=== PATIENT | male | born 1975 | race Caucasian/White ===

== ENCOUNTER 2018-09-30 20:49 | Inpatient (IN) ==
[2018-09-30 23:40] LABS: Hemoglobin 14.3 g/dL (12.9-16.9); Lymphocytes % 1.3 %
[2018-09-30 23:42] LABS: Basophils # 0.1 K/mcL (0.0-0.2); Basophils % 0.3 %; Hematocrit 42.7 % (37.5-50.1); Immature Granulocytes % 5.3 % (0-4); Lymphocytes # 0.4 K/mcL (0.6-4.6); Mean Corpuscular HGB Conc 33.5 g/dL (31.6-35.5); Mean Corpuscular Hemoglobin 28.5 pg (28.0-33.3); Mean Corpuscular Volume 85.2 fL (83.0-100.0); Mean Platelet Volume 9.5 fL (9.4-12.4); Monocytes # 0.8 K/mcL (0.0-1.3); Neutrophils # 24.2 K/mcL (1.6-8.9); Platelet Count 140 K/mcL (140-400); Red Blood Count 5.01 M/mcL (4.19-5.50); Red Cell Distribution Width 13.3 % (11.5-14.5); Segmented Neutrophils % 90.1 %
[2018-09-30] MEDS ORDERED: Naloxone 0.4 MG/ML INJ IVP PRN (23:56)
[2018-10-01] LABS: Alanine Aminotransferase 26 Units/L (7-52); Albumin 3.6 g/dL (3.5-5.7); Albumin/Globulin Ratio 1.3 (1.1-2.2); Alkaline Phosphatase 40 Units/L (34-104); Aspartate Amino Transferase 17 Units/L (13-39); BUN/Creatinine Ratio 13 (6-26); Bilirubin,Direct 0.2 mg/dL (0.0-0.2); Bilirubin,Indirect 0.5 mg/dL (0.0-1.2); Bilirubin,Total 0.7 mg/dL (0.3-1.0); Blood Urea Nitrogen 19 mg/dL (6-20); Calcium 8.6 mg/dL (8.6-10.3); Carbon Dioxide 22 mEq/L (23-29); Chloride 101 mEq/L (98-107); Globulin 2.7 g/dL (2.4-3.5); Glucose 92 mg/dL (70-105); Magnesium 1.5 mg/dL (1.6-2.6); Osmolality,Calculated 284 (280-300); Phosphorous 1.3 mg/dL (2.7-4.5); Potassium 3.5 mEq/L (3.5-5.1); Sodium 136 mEq/L (136-145); Total Protein 6.3 g/dL (6.4-8.9); eGFR For Non-African Americans 54 (> 60)
[2018-10-01 00:03] LABS: Platelet Estimate Decreased (Normal)
--- NOTE | 2018-10-01 00:07 | Internal Med History&Physical ---
<Vilma De La O - Last Filed: 10/01/18 02:16> Date of Encounter: 10/01/18 Time of Encounter: 00:07 Internal Medicine - H&P: HPI Admitted From: Hospital to Hospital Transfer Plans for Post Hospital Care: Home History of present illness: Mr. To is a 43 year old male presenting from [facility] emergency department via EMS for left lower extremity infection. He has a past medical history of hypertension, psoriasis which has led to multiple cellulitis infections in the past. Patient states last night he felt feverish and when he woke up his left lower extremity was erythematous and painful. He admits to having intense lower extremity pruritus and scratching at the multiple scabbed encrusting lesions on his lower extremities. He proceeded to take 3 tablets of Tylenol but continued to feel nauseous and diaphoretic as well as experiencing photophobia so presented to an urgent care, was transferred from urgent care to [place] [facility]. At [place] [facility] he was found to have tachycardia, leukocytosis at 24.5 with a left shift, as well as electrolyte abnormalities, hyponatremic at 133, hypokalemic at 3.1, hypophosphatemic at less than 1.0, hypomagnesemia at 1.4, lactic acidosis at 2.7. Peripheral smear was significant for toxic granulation, vacuolation, and dohle bodies. Troponins, BNP, cortisol, LFTs were within normal limits. EKG showed sinus tachycardia with heart rate 104 and right bundle branch block. UA was positive for proteinuria, ketonuria, moderate bacteria and hyaline casts. Chest x-ray was negative for any acute cardiopulmonary abnormality. Blood cultures were drawn and are pending. Patient admits to fever, chills, nausea, diaphoresis, photophobia, and chronic scabbed and crusted lesions over lower ex tremities. He states that his lower extremity pain is circumferential around the calf and extends to ankle distally and about 4-5 inches proximal to knee. Pain is 4 out of 10 and aggravated by walking and alleviated by lying still. He states that his leg is sore and aching. He denies any vomiting, lightheadedness, hearing changes, pharyngitis, sinus congestion, dysphagia, chest pain, pleuritic chest pain, shortness of breath, cough, palpitations, abdominal pain, diarrhea, constipation, hematochezia, melena, hematuria, dysuria, calf pain, joint pain, unintentional weight loss, change in ambulation. He also denies tobacco use, illicit drug use, recent hospitalizations or travel. Past Med Surg Social Fam HX - Past Medical History Medical history: hypertension Psychiatric history: no psych history - Past Surgical History Surgical History: no surgical history - Social History Smoking Status: Never smoker Smokeless Tobacco Status: No Alcohol use: occasionally Drug use: none Internal Medicine - H&P: Meds Aspirin [Ecotrin] 325 mg PO DAILY 09/30/18 [History] RX: Lisinopril-HCTZ 20-12.5 [Prinzide 20-12.5] 1 each PO BID 09/30/18 [History] amLODIPine [Norvasc] 5 mg PO DAILY 09/30/18 [History] Allergy/AdvReac Type Severity Reaction Status Date / Time No Known Allergies Allergy Verified 09/30/18 17:59 All Systems PM: A 10-system review of systems was performed and is negative for pertinent findings except as documented above in the HPI. - Constitutional Constitutional: chills, excessive sweating, fever(s), no anorexia, no weight loss - EENT Eyes: photophobia, no diplopia Ears: no decreased hearing, no tinnitus Nose, mouth and throat: no dysphagia, no nasal congestion, no neck pain, no sinus pressure, no sore throat - Cardiovascular Cardiovascular ROS IM: diaphoresis, no chest pain, no dyspnea, no dyspnea on exertion, no edema, no palpitations, no syncope - Respiratory Respiratory: no cough, no dyspnea, no hemoptysis, no pain on inspiration, no chest congestion - Gastrointestinal Gastrointestinal: nausea, no abdominal pain, no constipation, no diarrhea, no hematochezia, no melena, no vomiting - Genitourinary Genitourinary ROS male: no dysuria, no hematuria - Musculoskeletal Musculoskeletal ROS IM: no arthralgias, no myalgias - Integumentary Integumentary IM: non-healing lesions, pruritus - Neurological Neurological ROS: dizziness, no abnormal gait, no headache(s), no paresthesias, no vertigo - Psychiatric Psychiatric: no anxiety, no depression - Endocrine Endocrine IM: excessive sweating, no cold intolerance, no heat intolerance - Hematologic/Lymphatic Hematologic/Lymphatic: no easy bleeding, no easy bruising - Allergic/Immunologic Allergic/Immunologic: no uticaria - Constitutional Exam: Gen.: Vitals noted. Mild distress. AAOx3, resting comfortably in bed, obese. HEENT: PERRL/EOMI, oropharynx clear, Normocephalic, atraumatic, MMM Neck: Supple. No adenopathy. Trachea midline. No cervical midline tenderness Cardiac: Tachycardic, regular rhythm, no murmur, +S1/S2, No BLE edema, no JVD, radial and dorsal pedis pulses 3+ and symmetrical, capillary refill less than 2 seconds in all extremities. Pulmonary: CTA bilaterally, no wheezes, rales or rhonchi, equal chest expansion, unlabored breathing Abdomen: soft, nontender, BS noted, no guarding, no palpable HSM Back: Nontender throughout. Skin: warm and moist. Right lower extremity shows multiple scabbed and crusted lesions about 1 cm in diameter on anterior tib-fib region, no erythema or signs of excoriation. Left lower extremity shows anterior erythema extending from ankle to knee, multiple scabbed and crusted lesions circumferentially around sindy f, multiple excoriations present, no discharge or drainage from lesions, no fluctuance palpated. Left lower extremity is hot to touch as compared to right lower extremity. MSK: ROM intact, no joint swelling noted, gait no assessed while in bed. Non tender calf or clubbing Neuro: A&Ox3, moves all extremities, no focal deficits, sensation intact, CN2-12 grossly intact Psych: Appropriate mood and behavior, AOx3 Internal Med - H&P Results - Labs CBC & Chem 7: 09/30/18 23:24 09/30/18 23:24 Labs: Short CBC 09/30/18 Range/Units 23:24 WBC 26.8 H (4.3-11.1) K/mcL Hgb 14.3 (12.9-16.9) g/dL Hct 42.7 (37.5-50.1) % Plt Count 140 (140-400) K/mcL Neutrophils # 24.2 H (1.6-8.9) K/mcL BMP 09/30/18 23:24 Sodium 136 Potassium 3.5 Chloride 101 Carbon Dioxide 22 L BUN 19 Creatinine 1.43 H Glucose 92 Calcium 8.6 Liver Function 09/30/18 Range/Units 23:24 Total Bilirubin 0.7 (0.3-1.0) mg/dL Direct Bilirubin 0.2 (0.0-0.2) mg/dL AST 17 (13-39) Units/L ALT 26 (7-52) Units/L Alkaline Phosphatase 40 (34-104) Units/L Albumin 3.6 (3.5-5.7) g/dL - Assessment and Plan (1) Sepsis Current Visit: Yes Status: Acute Assessment and plan: Suspect secondary to left lower extremity cellulitis SIRS criteria on presentation to [place] ED include tachycardia at 101, leukocytosis 24.5 Patient was hypotensive at the ED, blood pressure 73/51 which has improved status post 3 L normal saline Current vitals are temperature 99.5, heart rate 92, respiratory rate 18, 104/64, 91% on 2 L nasal cannula Repeat of CBC shows that leukocytosis increased from 24.5-26.8 Repeated lactic acid shows increase from 2.7- 4.4 Peripheral smear was positive for toxic granulation, vacuolation and dohle bodies Chest x-ray negative for any acute cardiopulmonary abnormality Blood cultures pending, if patient remains febrile will repeat blood cultures Plan Hourly vitals and cardiac monitoring Fluid bolus of 2 L normal saline, followed by maintenance normal saline at 100 mL per hour Broad-spectrum antibiotic coverage with vancomycin and cefepime CT left lower extremity Venous doppler ultrasound left lower extremity Repeat lactic acid, CBC, BMP, magnesium, phosphorus at 4 AM Replete electrolytes Ondansetron for nausea Acetaminophen for fever Qualifiers: Sepsis type: sepsis due to unspecified organism Qualified Code(s): A41.9 - Sepsis, unspecified organism (2) Cellulitis of leg, left Current Visit: Yes Status: Acute Assessment and plan: Patient presented with left lower extremity cellulitis secondary to excoriation of psoriasis plaques Patient has history of multiple cellulitis infections secondary to the same Suspect this is causing severe sepsis CT left lower extremity pending Venous Doppler ultrasound left lower extremity pending Broad-spectrum antibiotic coverage with cefepime and vancomycin (3) Hypophosphatemia Current Visit: Yes Status: Acute Assessment and plan: Unknown reason for hypophosphatemia, no GI losses and unlikely to be secondary to decreased by mouth intake Less than 1.0 on presentation Continue to replete with potassium phosphate Repeat serum level at 4 AM Check urine phosphate to assess if renal loss (4) Hypokalemia Current Visit: Yes Status: Acute Assessment and plan: On presentation patient was hypokalemic, serum potassium 3.1 Unknown cause for hypokalemia Replete as needed Will check a urine potassium and repeat serum potassium at 4 am (5) Hypomagnesemia Current Visit: Yes Status: Acute Assessment and plan: Hypomagnesemia on presentation, serum magnesium at 1.4 Unlikely due to GI loss or decreased by mouth intake Replete with magnesium sulfate Recheck serum level at 4 AM Will check urine magnesium as well (6) Hyponatremia Current Visit: Yes Status: Acute Assessment and plan: Mildly hyponatremic on presentation, serum sodium 133 Patient is status post 3 L normal saline given for hypotension Patient is currently getting 2 L fluid bolus of normal saline as well as 100 mL per hour maintenance fluids after that Continue to monitor (7) ALPA (acute kidney injury) Current Visit: Yes Status: Acute Assessment and plan: Concern for ALPA secondary to sepsis and hypotension Creatinine elevated at 1.78 and BUN 20 Continue fluid resuscitation Avoid nephrotoxic agents and renally dose medications Continue to monitor (8) Psoriasis Current Visit: Yes Status: Chronic Assessment and plan: Patient has a history of plaque psoriasis Multiple plaques and skin lesions, 1 cm in diameter with scabbing and crusting over bilateral lower extremities Cause of cellulitis and sepsis Will consider restarting home medication of mometasone furoate (elocon) once patient is clinically more stable (9) Hypertension Current Visit: Yes Status: Chronic Assessment and plan: Patient has history of hypertension on lisinopril-hydrochlorothiazide as well as amlodipine Patient has had episodes of hypotension secondary to sepsis Continue to hold home medications at this time Qualifiers: Hypertension type: unspecified Qualified Code(s): I10 - Essential (primary) hypertension (10) DVT prophylaxis Current Visit: Yes Status: Acute Assessment and plan: Subcutaneous heparin - Time Spent With Patient Total time spent is greater than 50% in coordination of care (as documented) at patient's floor/unit and/or counseling patient: <Tamera Membreno - Last Filed: 10/01/18 03:02> Date of Encounter: 10/01/18 All Systems PM: A 10-system review of systems was performed and is negative for pertinent findings except as documented above in the HPI. - Constitutional Vitals: Temp Pulse Resp BP Pulse Ox 100.5 F H 113 22 128/61 95 10/01/18 00:27 10/01/18 00:27 10/01/18 00:27 10/01/18 00:27 10/01/18 00:27 Internal Med - H&P Results - Labs CBC & Chem 7: 09/30/18 23:24 09/30/18 23:24 Labs: Short CBC 09/30/18 Range/Units 23:24 WBC 26.8 H (4.3-11.1) K/mcL Hgb 14.3 (12.9-16.9) g/dL Hct 42.7 (37.5-50.1) % Plt Count 140 (140-400) K/mcL Neutrophils # 24.2 H (1.6-8.9) K/mcL BMP 09/30/18 23:24 Sodium 136 Potassium 3.5 Chloride 101 Carbon Dioxide 22 L BUN 19 Creatinine 1.43 H Glucose 92 Calcium 8.6 Liver Function 09/30/18 Range/Units 23:24 Total Bilirubin 0.7 (0.3-1.0) mg/dL Direct Bilirubin 0.2 (0.0-0.2) mg/dL AST 17 (13-39) Units/L ALT 26 (7-52) Units/L Alkaline Phosphatase 40 (34-104) Units/L Albumin 3.6 (3.5-5.7) g/dL - Time Spent With Patient Total time spent is greater than 50% in coordination of care (as documented) at patient's floor/unit and/or counseling patient: - Attending Attestation I performed a history and physical exam of the patient on 09/30/18 and discussed management with the resident. I reviewed the resident's note and agree with the documented findings and plan of care. Cory To is a morbidly obese man with psoriasis who presented to [place] with complaints of acute onset fever, chills and left leg pain and cramping with redness. He was notably hypotensive there and required 3L of fluid resuscitation. He was seen to have high grade leukocytosis and lactic acidemia. He also has significant electrolyte imbalances. Blood cultures were obtained and was placed on empiric abx. On arrival here he has a low grade fever and is tachycardic but normotensive. He reports feeling better. His only complaint is pain in his left leg. He states that he suffers a lot of lesions on that leg which ulcerate. Physical exam remarkable for left nazario erythema with multiple punctate scabbed/crusted lesions all over the lower leg with mild tenderness to palpation but no focal swelling/fluctuance. Repeat lactate done here shows an increase to 4.7. Peripheral smear shows Dohle bodies, toxic granulations and vacuolations. Concern for severe sepsis secondary to skin/soft tissue infection. Will get an urgent CT of his leg without contrast due to his ALPA for general evaluation. Will repeat BCx if fever recurs. Empiric abx with vancomycin/cefepime will be continued. 2L fluid bolus now then continue with maintenance. Replete electrolytes. Unclear why they are so low as he denies any GI losses. Will check urine studies to ascertain if that is a source of loss. Unlikely to be secondary to poor intake. DVT prophylaxis w/ SubQ heparin. TIANNA KC.
[2018-10-01] MEDS ORDERED: Potassium Phosphate 44 MEQ in 0.9 % Sodium Chloride 250 ML IVPB ONE (00:24)
[2018-10-01] MEDS: 0.9 % Sodium Chloride 1,000 ML IVC SCH ×2 (00:36→01:51)
[2018-10-01] MEDS ORDERED: Ondansetron 4 MG/2 ML VIAL IVP PRN (00:47)
[2018-10-01] MEDS ORDERED: 0.9 % Sodium Chloride 1,000 ML IVC SCH (01:00)
[2018-10-01] MEDS: Acetaminophen 325 MG TABLET PO PRN ×4 (01:12→20:47)
[2018-10-01] MEDS: Ringers Solution, Lactated 1,000 ML IVC SCH ×5 (03:02→22:01)
--- NOTE | 2018-10-01 04:20 | Sepsis Event Note ---
Sepsis Reassessment Note - Evaluation Sepsis Screen: Severe Sepsis Risk Current Stage of Sepsis: sepsis Possible Source of Sepsis: skin/soft tissue - Focused Exam Date of Encounter: 10/01/18 Time of Encounter: 04:16 Vital Signs: Vital Signs Temp Pulse Resp BP Pulse Ox 10/01/18 04:13 98.8 F 113 16 114/63 95 10/01/18 03:15 99.4 F 116 16 98/56 95 10/01/18 01:50 102.9 F H 112 15 102/60 94 10/01/18 01:03 99.5 F 92 18 104/64 91 10/01/18 00:27 100.5 F H 113 22 128/61 95 Respiratory Exam: Present: CTA bilaterally Cardiovascular Exam: Present: tachycardia, S1, S2. Absent: murmur, rubs, gallop Capillary Refill: < 2 seconds Peripheral Pulse Strength: 3+ normal (Radial, dorsal pedis and posterior tibial) Peripheral Pulse Location: Radial Skin Exam: diaphoretic - Reassessment Comments Comments: Patient seen and examined at bedside. Patient states that his left lower extremity feels somewhat better at this point. Patient does admit to continuing diaphoresis and fevers. Repeat 4 a.m. labs are pending, CT of the lower extremity does not have report, however review of imaging has no obvious signs of gas, abscess, or accumulation. Patient remains tachycardic however he is no longer febrile and his blood pressure stable. We will continue to closely monitor this patient.
[2018-10-01] MEDS: *HR* Heparin 5,000 UNIT/ML VIAL SQ SCH ×3 (05:18→20:49)
[2018-10-01] MEDS: Cefepime HCl 2,000 MG in Water for inj. (sterile) 20 ML 20 ML IVP SCH ×2 (05:18→18:24)
[2018-10-01] MEDS ORDERED: *HR* Heparin 5,000 UNIT/ML VIAL SQ SCH (06:00)
[2018-10-01 06:44] LABS: Basophils % 0.2 %; Hematocrit 41.5 % (37.5-50.1); Hemoglobin 13.9 g/dL (12.9-16.9); Lymphocytes # 0.5 K/mcL (0.6-4.6); Lymphocytes % 2.6 %; Mean Corpuscular HGB Conc 33.5 g/dL (31.6-35.5); Mean Corpuscular Hemoglobin 28.6 pg (28.0-33.3); Mean Corpuscular Volume 85.4 fL (83.0-100.0); Mean Platelet Volume 9.3 fL (9.4-12.4); Monocytes # 0.4 K/mcL (0.0-1.3); Monocytes % 2.2 %; Neutrophils # 17.8 K/mcL (1.6-8.9); Platelet Count 105 K/mcL (140-400); Red Blood Count 4.86 M/mcL (4.19-5.50); Red Cell Distribution Width 13.5 % (11.5-14.5)
[2018-10-01 07:52] LABS: BUN/Creatinine Ratio 13 (6-26); Blood Urea Nitrogen 16 mg/dL (6-20); Calcium 8.1 mg/dL (8.6-10.3); Carbon Dioxide 23 mEq/L (23-29); Chloride 105 mEq/L (98-107); Glucose 120 mg/dL (70-105); Magnesium 1.8 mg/dL (1.6-2.6); Osmolality,Calculated 282 (280-300); Phosphorous 1.8 mg/dL (2.7-4.5); Potassium 3.7 mEq/L (3.5-5.1); Sodium 135 mEq/L (136-145); eGFR For Non-African Americans > 60 (> 60)
--- NOTE | 2018-10-01 10:08 | Internal Med Progress Note ---
<Travis Obando - Last Filed: 10/01/18 14:38> Hospitalist Progress Note - Encounter Date of Encounter: 10/01/18 Time of Encounter: 10:12 - Subjective Interval History: Patient seen and examined at bedside this morning. He states that overall his leg does feel a little bit better compared to admission. He states that the s welling began approximately 24 hours prior to admission it is located in the left lower extremity. He has noticed redness and swelling in that time. He states that he is getting fevers and chills but these do not occur if he takes regularly scheduled Tylenol. Denies any leakage, pain, numbness or tingling in his extremity. He has had cellulitis in the past. Denies any diabetes or systemic immunosuppressants for his known psoriasis. - Exam Vitals: Temp Pulse Resp BP Pulse Ox 102.8 F H 102 20 124/68 92 10/01/18 08:44 10/01/18 08:44 10/01/18 08:44 10/01/18 08:44 10/01/18 08:44 Exam: Gen.: Vitals noted. No acute distress. AAOx3, resting comfortably in bed. Warm, diaphoretic skin, morbidly obese HEENT: PERRL/EOMI, oropharynx clear, Normocephalic, atraumatic, MMM Cardiac: RRR, tachycardic, no murmur, +S1/S2, 2+ BLE edema Pulmonary: CTA bilaterally, no wheezes, rales or rhonchi, equal chest expansion, unlabored breathing Abdomen: soft, nontender, BS noted, no guarding, no palpable HSM Skin: warm. Left lower extremity with increased warmth, erythema but no obvious drainage. It does appear swollen patient states these symptoms are improving. Tender to palpation MSK: ROM intact, no joint swelling noted, gait no assessed while in bed. Non tender calf or clubbing Neuro: A&Ox3, moves all extremities, no focal deficits, sensation intact Psych: Appropriate mood and behavior, AOx3 - Assessment and Plan (1) Cellulitis of leg, left Current Visit: Yes Status: Acute Assessment and Plan: As above (2) Hypophosphatemia Current Visit: Yes Status: Acute Assessment and Plan: - Phos of 1.3 on admission, trended to 1.4 - Will supplement and recheck (3) Hypomagnesemia Current Visit: Yes Status: Acute Assessment and Plan: Low at 1.5 on admission, replenished and repeat of 1.8 We will recheck in the morning and replace as necessary (4) Hyponatremia Current Visit: Yes Status: Acute Assessment and Plan: Mildly low at 135 - Possibly related to dehydration in the setting of sepsis - We will encourage diet and reassess fluid status - Continue monitor (5) ALPA (acute kidney injury) Current Visit: Yes Status: Acute Assessment and Plan: - BUN/Cr of 19/1.43 on presentation to this facility. At [facility], creatinine was 1.78 - Improved to 16/1.22 after fluids for sepsis as above - Unclear baseline, previous lab from 2014 shows creatinine 1.70 - Suspect that this is very likely secondary to hypovolemic state the setting of sepsis. Continue to monitor fluid administration. May need additional fluids pending future lab results (6) Psoriasis Current Visit: Yes Status: Chronic Assessment and Plan: Per history, chronic issue. Not on immunosuppressants (7) Hypertension Current Visit: Yes Status: Chronic Assessment and Plan: Well-controlled this time at 131/74 Continue to monitor (8) DVT prophylaxis Current Visit: Yes Status: Acute Assessment and Plan: Subcutaneous heparin (9) Septic shock Current Visit: Yes Status: Resolved Assessment and Plan: - Met 4/4 SIRS criteria with fever 102.9 axillary, HR 110s, RR 22, leukocytosis of 26.8 on admission - lactic acid elevated at 4.4 on presentation to this facility. - Suspected source: cellulitis - Suspected organism: unclear, likely staph vs strep - Lactate trended to 1.4 after fluids, leukocytosis improved to 19.3 - Currently meeting 2/4 sirs criteria and is no longer meeting criteria for septic shock. Still in sepsis - Patient was reportedly hypotensive in [facility] emergency room, currently well- controlled - Started on vancomycin, cefepime by admitting team - CT of the left lower shortly shows diffuse soft tissue swelling and fat stranding suggestive of cellulitis. No abscess or gas formation noted - Blood cultures obtained at admission negative 2 so far Plan - Continue vancomycin, cefepime day #1 - Continue Tylenol when necessary fever - Pain control - Can consider additional fluids if blood pressure decreases - Carefully monitor - Time Spent with Patient Total time spent is greater than 50% in coordination of care (as documented) at patient's floor/unit and/or counseling patient: Internal Medicine: Result - Labs CBC & Chem 7: 10/01/18 06:30 10/01/18 07:19 Labs: Short CBC 09/30/18 10/01/18 Range/Units 23:24 06:30 WBC 26.8 H 19.3 H (4.3-11.1) K/mcL Hgb 14.3 13.9 (12.9-16.9) g/dL Hct 42.7 41.5 (37.5-50.1) % Plt Count 140 105 L (140-400) K/mcL Neutrophils # 24.2 H 17.8 H (1.6-8.9) K/mcL BMP 09/30/18 10/01/18 23:24 07:19 Sodium 136 135 L Potassium 3.5 3.7 Chloride 101 105 Carbon Dioxide 22 L 23 BUN 19 16 Creatinine 1.43 H 1.22 Glucose 92 120 H Calcium 8.6 8.1 L Liver Function 09/30/18 Range/Units 23:24 Total Bilirubin 0.7 (0.3-1.0) mg/dL Direct Bilirubin 0.2 (0.0-0.2) mg/dL AST 17 (13-39) Units/L ALT 26 (7-52) Units/L Alkaline Phosphatase 40 (34-104) Units/L Albumin 3.6 (3.5-5.7) g/dL - Impressions Impressions Lower Extremity CT 10/01/18 00:26 IMPRESSION: Diffuse soft tissue swelling and fat stranding within the left lower leg particularly anteriorly suggestive of cellulitis. No soft tissue fluid collection or soft tissue gas. D/ / Kelvin Balderrama / Kelvin Balderrama Interpreting Provider: Kelvin Balderrama Consult Discharge Plan - Plan Referrals: Levy Kelly, [employer] [Primary Care Provider] - <Francisco Javier West - Last Filed: 10/01/18 15:14> Hospitalist Progress Note - Encounter Date of Encounter: 10/01/18 - Exam Vitals: Temp Pulse Resp BP Pulse Ox 100.9 F H 120 20 131/74 96 10/01/18 11:46 10/01/18 11:46 10/01/18 11:46 10/01/18 11:46 10/01/18 11:46 - Assessment and Plan (1) Cellulitis of leg, left Current Visit: Yes Status: Acute (2) Hypophosphatemia Current Visit: Yes Status: Acute (3) Hypomagnesemia Current Visit: Yes Status: Acute (4) Hyponatremia Current Visit: Yes Status: Acute (5) ALPA (acute kidney injury) Current Visit: Yes Status: Acute (6) Psoriasis Current Visit: Yes Status: Chronic (7) DVT prophylaxis Current Visit: Yes Status: Acute (8) Hypertension Current Visit: Yes Status: Chronic (9) Septic shock Current Visit: Yes Status: Resolved (10) Morbid obesity with BMI of 45.0-49.9, adult Current Visit: Yes Status: Chronic - Time Spent with Patient Total time spent is greater than 50% in coordination of care (as documented) at patient's floor/unit and/or counseling patient: Internal Medicine: Result - Labs CBC & Chem 7: 10/01/18 06:30 10/01/18 07:19 Labs: Short CBC 09/30/18 10/01/18 Range/Units 23:24 06:30 WBC 26.8 H 19.3 H (4.3-11.1) K/mcL Hgb 14.3 13.9 (12.9-16.9) g/dL Hct 42.7 41.5 (37.5-50.1) % Plt Count 140 105 L (140-400) K/mcL Neutrophils # 24.2 H 17.8 H (1.6-8.9) K/mcL BMP 09/30/18 10/01/18 23:24 07:19 Sodium 136 135 L Potassium 3.5 3.7 Chloride 101 105 Carbon Dioxide 22 L 23 BUN 19 16 Creatinine 1.43 H 1.22 Glucose 92 120 H Calcium 8.6 8.1 L Liver Function 09/30/18 Range/Units 23:24 Total Bilirubin 0.7 (0.3-1.0) mg/dL Direct Bilirubin 0.2 (0.0-0.2) mg/dL AST 17 (13-39) Units/L ALT 26 (7-52) Units/L Alkaline Phosphatase 40 (34-104) Units/L Albumin 3.6 (3.5-5.7) g/dL - Impressions Impressions Lower Extremity CT 10/01/18 00:26 IMPRESSION: Diffuse soft tissue swelling and fat stranding within the left lower leg particularly anteriorly suggestive of cellulitis. No soft tissue fluid collection or soft tissue gas. D/ / Kelvin Balderrama / Kelvin Balderrama Interpreting Provider: Kelvin Balderrama - Attending Attestation I examined this patient and my medical decision-making was reviewed with the Resident Physician on 10/01/18. I agree with the documented findings, disposition and treatment plan as described except to the extent set forth below. Mr To is currently admitted for cellulitis LLE. He remains moderate to high risk due to potential for worsening clinical status. Mr To says his leg feels better than yesterday. Still has fever though lower than yesterday. No CP or SOB. No cough. Exam alert Comfortable Mucus membranes moist Heart tachy and regular Lungs no wheeze Abd nontender LLE with edema and erythema. Pulses palpable I/P 1. Cellulitis LLE - continue IV abx. Lactate normalized. No abscess on CT. 2. Morbid obesity Further diagnoses and plan as above. <Travis Obando - Last Filed: 10/01/18 14:38> (7) Hypertension Qualifiers: Hypertension type: unspecified Qualified Code(s): I10 - Essential (primary) hypertension <Francisco Javier West - Last Filed: 10/01/18 15:14> (8) Hypertension Qualifiers: Hypertension type: essential hypertension Qualified Code(s): I10 - Essential (primary) hypertension
[2018-10-01] MEDS ORDERED: *HR* HYDROcodone/Acet 5/325 mg TABLET PO PRN (10:15)
[2018-10-01] MEDS ORDERED: 0.9 % Sodium Chloride 1,000 ML IVC ONE (14:42)
[2018-10-01] MEDS ORDERED: Ringers Solution, Lactated 1,000 ML IVC ONE (14:57)
[2018-10-02] MEDS: Ibuprofen 800 MG TABLET PO PRN ×2 (01:11→16:27)
[2018-10-02 02:23] LABS: Basophils % 0.2 %; Hematocrit 35.6 % (37.5-50.1); Immature Granulocytes % 1.2 % (0-4); Lymphocytes # 1.2 K/mcL (0.6-4.6); Lymphocytes % 9.4 %; Mean Corpuscular Hemoglobin 28.2 pg (28.0-33.3); Mean Platelet Volume 9.9 fL (9.4-12.4); Monocytes # 0.4 K/mcL (0.0-1.3); Neutrophils # 11.3 K/mcL (1.6-8.9); Platelet Count 106 K/mcL (140-400); Red Blood Count 4.29 M/mcL (4.19-5.50); Red Cell Distribution Width 13.6 % (11.5-14.5); Segmented Neutrophils % 86.2 %
[2018-10-02 02:24] LABS: Hemoglobin 12.1 g/dL (12.9-16.9)
[2018-10-02 02:42] LABS: BUN/Creatinine Ratio 10 (6-26); Blood Urea Nitrogen 10 mg/dL (6-20); Calcium 8.3 mg/dL (8.6-10.3); Carbon Dioxide 22 mEq/L (23-29); Chloride 105 mEq/L (98-107); Glucose 122 mg/dL (70-105); Osmolality,Calculated 278 (280-300); Potassium 3.5 mEq/L (3.5-5.1); Sodium 134 mEq/L (136-145); eGFR For Non-African Americans > 60 (> 60)
[2018-10-02] MEDS: Ringers Solution, Lactated 1,000 ML IVC SCH ×4 (03:35→22:22)
[2018-10-02] MEDS: *HR* Heparin 5,000 UNIT/ML VIAL SQ SCH ×3 (06:23→21:13)
[2018-10-02] MEDS: Cefepime HCl 2,000 MG in Water for inj. (sterile) 20 ML 20 ML IVP SCH ×2 (06:23→16:28)
--- NOTE | 2018-10-02 08:53 | Internal Med Progress Note ---
Hospitalist Progress Note - Encounter Date of Encounter: 10/02/18 - Exam Vitals: Temp Pulse Resp BP Pulse Ox 97.8 F 93 18 115/74 96 10/02/18 07:25 10/02/18 07:25 10/02/18 07:25 10/02/18 07:25 10/02/18 07:25 - Assessment and Plan (1) Cellulitis of leg, left Current Visit: Yes Status: Acute (2) Hypophosphatemia Current Visit: Yes Status: Acute (3) Hypomagnesemia Current Visit: Yes Status: Acute (4) Hyponatremia Current Visit: Yes Status: Acute (5) ALPA (acute kidney injury) Current Visit: Yes Status: Acute (6) Psoriasis Current Visit: Yes Status: Chronic (7) DVT prophylaxis Current Visit: Yes Status: Acute (8) Hypertension Current Visit: Yes Status: Chronic (9) Septic shock Current Visit: Yes Status: Resolved (10) Morbid obesity with BMI of 45.0-49.9, adult Current Visit: Yes Status: Chronic - Time Spent with Patient Total time spent is greater than 50% in coordination of care (as documented) at patient's floor/unit and/or counseling patient: Internal Medicine: Result - Labs CBC & Chem 7: 10/02/18 02:12 10/02/18 02:12 Labs: Short CBC 10/02/18 Range/Units 02:12 WBC 13.1 H (4.3-11.1) K/mcL Hgb 12.1 L D (12.9-16.9) g/dL Hct 35.6 L (37.5-50.1) % Plt Count 106 L (140-400) K/mcL Neutrophils # 11.3 H (1.6-8.9) K/mcL BMP 10/02/18 02:12 Sodium 134 L Potassium 3.5 Chloride 105 Carbon Dioxide 22 L BUN 10 Creatinine 0.98 Glucose 122 H Calcium 8.3 L Consult Discharge Plan - Plan Referrals: Levy Kelly, CLERK STENOGRAPHER [Primary Care Provider] - (8) Hypertension Qualifiers: Hypertension type: essential hypertension Qualified Code(s): I10 - Essential (primary) hypertension
--- NOTE | 2018-10-02 09:28 | Internal Med Progress Note ---
<Sharona Darling - Last Filed: 10/02/18 16:22> Hospitalist Progress Note - Encounter Date of Encounter: 10/02/18 Time of Encounter: 08:50 - Subjective Interval History: Patient seen and examined at bedside. Mr. To states that his leg is still bothering him. He states the pain is a little better than last night but it is still very uncomfortable with any movement. He is also complaining of redness developing on the posterior aspect of his right calf now. He states that he does not feel like he is having chills or fevers currently. His left leg is still warm, swollen, and red up to the groin and there is mild erythema on the distal portion of the right calf.Patient is neurovascularly intact. He denies any CP, SOB, tachycardia, difficulty urinating, numbness, weakness, tingling, nausea, vomiting, diarrhea. - Exam Vitals: Temp Pulse Resp BP Pulse Ox 97.8 F 93 18 115/74 96 10/02/18 07:25 10/02/18 07:25 10/02/18 07:25 10/02/18 07:25 10/02/18 07:25 Exam: Gen.: alert and oriented, no acute distress HEENT: PERRL/EOMI, oropharynx clear, Normocephalic, atraumatic Cardiac: RRR, tachycardic, no murmur, no gallops, no rubs Pulmonary: LCTAB, no wheezes, rales or rhonchi, equal chest expansion, unlabored breathing Abdomen: soft, nontender, BSx4, no guarding, no palpable masses Skin: warm. Left lower extremity with increased warmth, erythema but no obvious drainage. 2+ edema, tender to palpation. Right lower extremity has mild erythema on posterior calf MSK: ROM intact, no joint swelling noted Neuro: A&Ox3, moves all extremities, no focal deficits, sensation intact Psych: Appropriate mood and behavior, normal speech - Assessment and Plan (1) Septic shock Current Visit: Yes Status: Resolved Assessment and Plan: Causative organism: suspect staph vs strep Suspected source: Cellulitis SIRS criteria positive on admission: temp 102.4 axillary, HR 110s, RR 22, WBC 26.8, lactic acid 4.4 IV fluids given SIRS criteria positive today: WBC 13.1, HR 93, RR 18, lactic acid 0.7 Currently receiving day 2 of Vancomycin and Cefepime Blood culture NGTD Plan: Continue Vancomycin and cefepime Will obtain MRSA nasal swab Pain control (2) Cellulitis of leg, left Current Visit: Yes Status: Acute Assessment and Plan: Patient has hx of psoriasis and previous cellulitis LLE is swollen, erythematous, and warm with no obvious drainage Venous duplex was normal to rule out DVT/compartment syndrome CT of L leg showed diffuse soft tissue swelling and fat stranding suggestive of cellulitis, no abscess or gas formation noted Started on Vancomycin and Cefepime Blood culture NGTD Plan: Continue vancomycin and cefepime Obtain MRSA swab Pain control (3) ALPA (acute kidney injury) Current Visit: Yes Status: Acute Assessment and Plan: Suspect prerenal due to hypovolemic state in the setting of septic shock Creatinine was 1.43 upon admission, unsure of baseline Currently creatinine is 0.98 IV fluids were given Renally dose medications and avoid nephrotoxins Will continue to monitor (4) Hypomagnesemia Current Visit: Yes Status: Acute Assessment and Plan: Likely due to dehydration and poor PO intake Magnesium is currently 1.8 Currently receiving magnesium sulfate Will recheck levels in the AM (5) Hyponatremia Current Visit: Yes Status: Acute Assessment and Plan: Likely due to dehydration and sepsis Sodium was 134 today No altered mental status changes present Will continue to monitor (6) Hypophosphatemia Current Visit: Yes Status: Acute Assessment and Plan: Supplementation given Repeat phosphate was 1.8 (7) Psoriasis Current Visit: Yes Status: Chronic Assessment and Plan: chronic per history (8) Hypertension Current Visit: Yes Status: Chronic Assessment and Plan: Blood pressure is 115/74 Well-controlled at this time Continue to monitor (9) Morbid obesity with BMI of 45.0-49.9, adult Current Visit: Yes Status: Chronic Assessment and Plan: Advised on better dietary options DVT Prophylaxis: Subcutaneous heparin - Time Spent with Patient Total time spent is greater than 50% in coordination of care (as documented) at patient's floor/unit and/or counseling patient: Internal Medicine: Result - Labs CBC & Chem 7: 10/02/18 02:12 10/02/18 02:12 Labs: Short CBC 10/02/18 Range/Units 02:12 WBC 13.1 H (4.3-11.1) K/mcL Hgb 12.1 L D (12.9-16.9) g/dL Hct 35.6 L (37.5-50.1) % Plt Count 106 L (140-400) K/mcL Neutrophils # 11.3 H (1.6-8.9) K/mcL BMP 10/02/18 02:12 Sodium 134 L Potassium 3.5 Chloride 105 Carbon Dioxide 22 L BUN 10 Creatinine 0.98 Glucose 122 H Calcium 8.3 L Consult Discharge Plan - Plan Referrals: Levy Kelly, KINESIOLOGY PROFESSOR [Primary Care Provider] - <Francisco Javier West - Last Filed: 10/02/18 17:47> Hospitalist Progress Note - Encounter Date of Encounter: 10/02/18 - Exam Vitals: Temp Pulse Resp BP Pulse Ox 99.3 F 101 18 143/93 96 10/02/18 16:03 10/02/18 16:03 10/02/18 16:03 10/02/18 16:03 10/02/18 16:03 - Assessment and Plan (1) Cellulitis of leg, left Current Visit: Yes Status: Acute (2) Hypophosphatemia Current Visit: Yes Status: Acute (3) Hypomagnesemia Current Visit: Yes Status: Acute (4) Hyponatremia Current Visit: Yes Status: Acute (5) ALPA (acute kidney injury) Current Visit: Yes Status: Acute (6) Psoriasis Current Visit: Yes Status: Chronic (7) DVT prophylaxis Current Visit: Yes Status: Acute (8) Hypertension Current Visit: Yes Status: Chronic (9) Septic shock Current Visit: Yes Status: Resolved (10) Morbid obesity with BMI of 45.0-49.9, adult Current Visit: Yes Status: Chronic - Time Spent with Patient Total time spent is greater than 50% in coordination of care (as documented) at patient's floor/unit and/or counseling patient: Internal Medicine: Result - Labs CBC & Chem 7: 10/02/18 02:12 10/02/18 02:12 Labs: Short CBC 10/02/18 Range/Units 02:12 WBC 13.1 H (4.3-11.1) K/mcL Hgb 12.1 L D (12.9-16.9) g/dL Hct 35.6 L (37.5-50.1) % Plt Count 106 L (140-400) K/mcL Neutrophils # 11.3 H (1.6-8.9) K/mcL BMP 10/02/18 02:12 Sodium 134 L Potassium 3.5 Chloride 105 Carbon Dioxide 22 L BUN 10 Creatinine 0.98 Glucose 122 H Calcium 8.3 L - Attending Attestation The history, physical exam, and medical decision making was performed by the medical student either while I was physically present and actively involved or I personally re-performed the exam and medical decision making. I have verified the accuracy of the medical student's documentation with regards to the history, physical exam findings, and medical decision making on 10/02/18. Mr To is currently admitted for cellulitis LLE. He remains moderate to high risk due to potential for worsening clinical status. Mr To is afebrile now. He felt bad during the night. No chills. No abdominal pain. Does have pain up to groin. Exam alert Comfortable Mucus membranes dry Normocephalic Heart reg. Still tachy in low 100s Lungs clear Abd soft Moves all extremities LLE with persistent edema. Erythema present - seems less to me. Has inguinal adenopathy Pulses palpable I/P 1. Cellulitis LLE - on IV abx. Will continue for now. 2. Morbid obesity 3. HTN - controlled now 4. Septic shock - resolved Further diagnoses and plan as above. <Sharona Darling A - Last Filed: 10/02/18 16:22> (8) Hypertension Qualifiers: Hypertension type: essential hypertension Qualified Code(s): I10 - Essential (primary) hypertension <Francisco Javier West A - Last Filed: 10/02/18 17:47> (8) Hypertension Qualifiers: Hypertension type: essential hypertension Qualified Code(s): I10 - Essential (primary) hypertension
[2018-10-02 10:04] LABS: Urine Collection Volume RANDOM mL
[2018-10-02 11:20] LABS: Urine Magnesium mg/dL <1.4 mg/dL
[2018-10-03] MEDS: Ringers Solution, Lactated 1,000 ML IVC SCH ×2 (04:00→05:12)
[2018-10-03 04:58] LABS: Basophils % 0.2 %; Eosinophils # 0.1 K/mcL (0.0-0.6); Eosinophils % 0.8 %; Hematocrit 37.6 % (37.5-50.1); Hemoglobin 12.4 g/dL (12.9-16.9); Immature Granulocytes % 0.4 % (0-4); Lymphocytes # 1.4 K/mcL (0.6-4.6); Lymphocytes % 15.1 %; Mean Corpuscular Hemoglobin 27.7 pg (28.0-33.3); Mean Corpuscular Volume 83.9 fL (83.0-100.0); Monocytes # 0.4 K/mcL (0.0-1.3); Monocytes % 4.4 %; Neutrophils # 7.4 K/mcL (1.6-8.9); Platelet Count 107 K/mcL (140-400); Red Blood Count 4.48 M/mcL (4.19-5.50); Red Cell Distribution Width 13.6 % (11.5-14.5); Segmented Neutrophils % 79.1 %
[2018-10-03 05:13] LABS: BUN/Creatinine Ratio 13 (6-26); Blood Urea Nitrogen 11 mg/dL (6-20); Calcium 8.4 mg/dL (8.6-10.3); Carbon Dioxide 23 mEq/L (23-29); Chloride 106 mEq/L (98-107); Glucose 94 mg/dL (70-105); Osmolality,Calculated 283 (280-300); Potassium 3.6 mEq/L (3.5-5.1); Sodium 137 mEq/L (136-145); eGFR For Non-African Americans > 60 (> 60)
[2018-10-03] MEDS: Cefepime HCl 2,000 MG in Water for inj. (sterile) 20 ML 20 ML IVP SCH ×2 (05:16→17:18)
[2018-10-03] MEDS: *HR* Heparin 5,000 UNIT/ML VIAL SQ SCH ×3 (05:17→21:05)
[2018-10-03] MEDS ORDERED: Aminoglycoside Consult 1 EACH MC ONE (08:24)
--- NOTE | 2018-10-03 14:03 | Internal Med Progress Note ---
<Francisco Javier West - Last Filed: 10/03/18 15:11> Hospitalist Progress Note - Encounter Date of Encounter: 10/03/18 - Exam Vitals: Temp Pulse Resp BP Pulse Ox 98.6 F 100 17 144/96 94 10/03/18 11:00 10/03/18 11:00 10/03/18 11:00 10/03/18 11:00 10/03/18 11:00 - Assessment and Plan (1) Cellulitis of leg, left Current Visit: Yes Status: Acute (2) Hypophosphatemia Current Visit: Yes Status: Acute (3) Hypomagnesemia Current Visit: Yes Status: Acute (4) Hyponatremia Current Visit: Yes Status: Acute (5) ALPA (acute kidney injury) Current Visit: Yes Status: Acute (6) Psoriasis Current Visit: Yes Status: Chronic (7) DVT prophylaxis Current Visit: Yes Status: Acute (8) Hypertension Current Visit: Yes Status: Chronic (9) Septic shock Current Visit: Yes Status: Resolved (10) Morbid obesity with BMI of 45.0-49.9, adult Current Visit: Yes Status: Chronic - Time Spent with Patient Total time spent is greater than 50% in coordination of care (as documented) at patient's floor/unit and/or counseling patient: Internal Medicine: Result - Labs CBC & Chem 7: 10/03/18 03:44 10/03/18 03:44 Labs: Short CBC 10/03/18 Range/Units 03:44 WBC 9.3 (4.3-11.1) K/mcL Hgb 12.4 L (12.9-16.9) g/dL Hct 37.6 (37.5-50.1) % Plt Count 107 L (140-400) K/mcL Neutrophils # 7.4 (1.6-8.9) K/mcL BMP 10/03/18 03:44 Sodium 137 Potassium 3.6 Chloride 106 Carbon Dioxide 23 BUN 11 Creatinine 0.83 Glucose 94 Calcium 8.4 L Consult Discharge Plan - Plan Referrals: Levy Kelly, OPERATIONAL METEOROLOGIST [Primary Care Provider] - - Attending Attestation I examined this patient and my medical decision-making was reviewed with the Resident Physician on 10/03/18. I agree with the documented findings, disposition and treatment plan as described except to the extent set forth below. Mr To is currently admitted for cellulitis LLE associated with septic shock and acute renal failure. He remains moderate to high risk due to potential for worsening clinical status. Mr To is up eating breakfast. He has not had a fever in over 24hours. Still with erythema and swelling. Pain about the same. WBC now normal as well. Exam alert Comfortable up on side of bed Mucus membranes dry Heart not tachy No wheeze Abd soft LLE with continued erythema and swelling. May be a little better with erythema. Moves all extremities I/P 1. Cellulitis - continue same abx. No cultures positive at this time. MRSA screen negative so Vanc stopped. Continue Cefipime but may be able to deescalate to Ancef soon. 2. Psoriasis - stable 3. Morbid obesity 4. ALPA resolved. 5. Septic shock resolved Further diagnoses and plan as above. <Charles Navarrete - Last Filed: 10/03/18 21:02> Hospitalist Progress Note - Encounter Date of Encounter: 10/03/18 Time of Encounter: 08:30 - Subjective Interval History: No acute events overnight. Patient's cellulitis infection look the same as yesterday, endorses no discomfort, pain or itching. He does not appear to be in sepsis with his white blood count has been trending down, patient has been afebrile, with no tachycardia or tachypnea. The wound looks dry with no evidence of any serosanguineous discharge, bleeding. Patient's MRSA swab was negative therefore I have discontinued patient's vancomycin. Blood cultures still has not grown anything so far. He continues to be on day 3 of cefepime. Depending upon how the wound looks tomorrow we will make changes to his antibiotic regimen accordingly. Denies any other systemic signs like fever, shortness of breath, chest pain, nausea. - Exam Vitals: Temp Pulse Resp BP Pulse Ox 98.6 F 100 17 144/96 94 10/03/18 11:00 10/03/18 11:00 10/03/18 11:00 10/03/18 11:10/03/18 11:00 Exam: Gen.: alert and oriented, no acute distress HEENT: PERRL/EOMI, oropharynx clear, Normocephalic, atraumatic Cardiac: RRR, tachycardic, no murmur, no gallops, no rubs Pulmonary: LCTAB, no wheezes, rales or rhonchi, equal chest expansion, unlabored breathing Abdomen: soft, nontender, BSx4, no guarding, no palpable masses Skin: warm. Left lower extremity , erythema but no obvious drainage. 2+ edema, non-tender to palpation, mildly warm. MSK: ROM intact, no joint swelling noted Neuro: A&Ox3, moves all extremities, no focal deficits, sensation intact Psych: Appropriate mood and behavior, normal speech - Assessment and Plan (1) Cellulitis of leg, left Current Visit: Yes Status: Acute Assessment and Plan: Causative organism: suspect staph vs strep Suspected source: Cellulitis SIRS criteria positive on admission: temp 102.4 axillary, HR 110s, RR 22, WBC 26.8, lactic acid 4.4 IV fluids given SIRS criteria positive yesterday: WBC 13.1, HR 93, RR 18, lactic acid 0.7 Currently not meeting the SIRS criteria MRSA swab negative. Discontinue Vancomycin Blood culture NGTD Plan: Continue day 3 Cefepime, will switch to cefazolin if the wound looks better, patient is afebrile with no increased WBC Pain control PRN (2) Septic shock Current Visit: Yes Status: Resolved Assessment and Plan: -Currently resolved. Lactate has been trending down from 4.4 -> 0.7. Causative organism: suspect staph vs strep Suspected source: Cellulitis SIRS criteria positive on admission: temp 102.4 axillary, HR 110s, RR 22, WBC 26.8, lactic acid 4.4 IV fluids given SIRS criteria positive yesterday: WBC 13.1, HR 93, RR 18, lactic acid 0.7 MRSA swab negative. Discontinue Vancomycin Blood culture NGTD Plan: Continue day 3 Cefepime We will adjust antibiotics as needed in the future. Pain control (3) Hyponatremia Current Visit: Yes Status: Acute Assessment and Plan: Resolved with sodium of 137 -Was mildly low at 135 on admission - Possibly related to dehydration in the setting of sepsis - We will encourage diet and reassess fluid status - Continue monitor (4) Hypophosphatemia Current Visit: Yes Status: Acute Assessment and Plan: - Phos of 1.3 on admission, currently 1.8 - Will supplement and recheck (5) Hypomagnesemia Current Visit: Yes Status: Acute Assessment and Plan: Low at 1.5 on admission, replenished and repeat of 1.8 We will recheck in the morning and replace as necessary (6) ALPA (acute kidney injury) Current Visit: Yes Status: Acute Assessment and Plan: - Resolved with BUN/Cr: 11/0.83 currently - Patient was inAKI likely due to hypovolemic state in the setting of sepsis. - Unclear baseline, previous lab from 2014 shows creatinine 1.70 - Fluid discontinued (7) Psoriasis Current Visit: Yes Status: Chronic Assessment and Plan: Per history, chronic issue. Not on immunosuppressants (8) Hypertension Current Visit: Yes Status: Chronic Assessment and Plan: Well-controlled this time at 146/91 Continue to monitor (9) Morbid obesity with BMI of 45.0-49.9, adult Current Visit: Yes Status: Chronic Assessment and Plan: counseled on better dietary options (10) DVT prophylaxis Current Visit: Yes Status: Acute Assessment and Plan: Subcutaneous heparin DVT Prophylaxis: Subcutaneous heparin - Time Spent with Patient Total time spent is greater than 50% in coordination of care (as documented) at patient's floor/unit and/or counseling patient: Internal Medicine: Result - Labs CBC & Chem 7: 10/03/18 03:44 10/03/18 03:44 Labs: Short CBC 10/03/18 Range/Units 03:44 WBC 9.3 (4.3-11.1) K/mcL Hgb 12.4 L (12.9-16.9) g/dL Hct 37.6 (37.5-50.1) % Plt Count 107 L (140-400) K/mcL Neutrophils # 7.4 (1.6-8.9) K/mcL BMP 10/03/18 03:44 Sodium 137 Potassium 3.6 Chloride 106 Carbon Dioxide 23 BUN 11 Creatinine 0.83 Glucose 94 Calcium 8.4 L <Francisco Javier West - Last Filed: 10/03/18 15:11> (8) Hypertension Qualifiers: Hypertension type: essential hypertension Qualified Code(s): I10 - Essential (primary) hypertension <Charles Navarrete - Last Filed: 10/03/18 21:02> (8) Hypertension Qualifiers: Hypertension type: essential hypertension Qualified Code(s): I10 - Essential (primary) hypertension
[2018-10-03] MEDS ORDERED: Potassium Phosphate 44 MEQ in 0.9 % Sodium Chloride 250 ML IVPB ONE (18:08)
[2018-10-03] MEDS: Ibuprofen 800 MG TABLET PO PRN (19:46)
[2018-10-04] MEDS: *HR* Heparin 5,000 UNIT/ML VIAL SQ SCH ×3 (05:32→20:57)
[2018-10-04] MEDS: Cefepime HCl 2,000 MG in Water for inj. (sterile) 20 ML 20 ML IVP SCH ×2 (05:32→18:07)
[2018-10-04 06:31] LABS: Basophils % 0.4 %; Eosinophils # 0.2 K/mcL (0.0-0.6); Eosinophils % 2.1 %; Hematocrit 37.4 % (37.5-50.1); Hemoglobin 12.1 g/dL (12.9-16.9); Lymphocytes # 1.5 K/mcL (0.6-4.6); Lymphocytes % 20.3 %; Mean Corpuscular HGB Conc 32.4 g/dL (31.6-35.5); Mean Corpuscular Hemoglobin 27.5 pg (28.0-33.3); Mean Platelet Volume 9.7 fL (9.4-12.4); Monocytes # 0.5 K/mcL (0.0-1.3); Monocytes % 7.4 %; Neutrophils # 4.9 K/mcL (1.6-8.9); Platelet Count 126 K/mcL (140-400); Red Cell Distribution Width 13.5 % (11.5-14.5); Segmented Neutrophils % 68.8 %
[2018-10-04 06:48] LABS: BUN/Creatinine Ratio 15 (6-26); Blood Urea Nitrogen 11 mg/dL (6-20); Calcium 8.2 mg/dL (8.6-10.3); Carbon Dioxide 26 mEq/L (23-29); Chloride 106 mEq/L (98-107); Glucose 90 mg/dL (70-105); Osmolality,Calculated 287 (280-300); Potassium 3.8 mEq/L (3.5-5.1); Sodium 139 mEq/L (136-145); eGFR For Non-African Americans > 60 (> 60)
--- NOTE | 2018-10-04 13:07 | Internal Med Progress Note ---
<Esther oRjas - Last Filed: 10/04/18 14:33> Hospitalist Progress Note - Encounter Date of Encounter: 10/04/18 - Exam Vitals: Temp Pulse Resp BP Pulse Ox 99.1 F 77 18 132/72 97 10/04/18 11:30 10/04/18 11:30 10/04/18 11:30 10/04/18 11:30 10/04/18 11:30 - Assessment and Plan (1) Cellulitis of leg, left Current Visit: Yes Status: Acute (2) Hypophosphatemia Current Visit: Yes Status: Acute (3) Hypomagnesemia Current Visit: Yes Status: Acute (4) Hyponatremia Current Visit: Yes Status: Acute (5) ALPA (acute kidney injury) Current Visit: Yes Status: Acute (6) Psoriasis Current Visit: Yes Status: Chronic (7) DVT prophylaxis Current Visit: Yes Status: Acute (8) Hypertension Current Visit: Yes Status: Chronic (9) Septic shock Current Visit: Yes Status: Resolved (10) Morbid obesity with BMI of 45.0-49.9, adult Current Visit: Yes Status: Chronic - Time Spent with Patient Total time spent is greater than 50% in coordination of care (as documented) at patient's floor/unit and/or counseling patient: Internal Medicine: Result - Labs CBC & Chem 7: 10/04/18 06:12 10/04/18 06:12 Labs: Short CBC 10/04/18 Range/Units 06:12 WBC 7.2 (4.3-11.1) K/mcL Hgb 12.1 L (12.9-16.9) g/dL Hct 37.4 L (37.5-50.1) % Plt Count 126 L (140-400) K/mcL Neutrophils # 4.9 (1.6-8.9) K/mcL BMP 10/04/18 06:12 Sodium 139 Potassium 3.8 Chloride 106 Carbon Dioxide 26 BUN 11 Creatinine 0.75 Glucose 90 Calcium 8.2 L Consult Discharge Plan - Plan Referrals: Levy Kelly, AUTO MECHANICS TEACHER [Primary Care Provider] - - Attending Attestation I examined this patient and my medical decision-making was reviewed with the Resident Physician Landon. I agree with the documented findings, disposition and treatment plan as described except to the extent set forth below. Mr To is currently admitted for cellulitis LLE associated with septic shock and acute renal failure. Mr To is awake. continued erythema outside marked area no leg, having thigh fullness and discomofrt today, no fevers/chills, n/v. gen- alert, awake,appears stated age cv- reg rate and rhythm, normal s1,s2, no murmurs appreciated, no pitting le edema lungs- ctabl, no wheezing, rhonchi or crackles skin- beefy red erythmea with some extensive outside marked line LLE, faint erythema medial thigh LLE neuro- AAOx3, sensation to lt touch bl le intact and equal 1. Cellulitis - continue cefepime 2. Psoriasis - stable 3. Morbid obesity- lifestyle modifications 4. ALPA resolved. 5. Septic shock resolved Further diagnoses and plan as noted by resident <Charles Navarrete - Last Filed: 10/04/18 20:24> Hospitalist Progress Note - Encounter Date of Encounter: 10/04/18 Time of Encounter: 09:00 - Exam Vitals: Temp Pulse Resp BP Pulse Ox 99.1 F 77 18 132/72 97 10/04/18 11:30 10/04/18 11:30 10/04/18 11:30 10/04/18 11:30 10/04/18 11:30 Exam: Gen.: alert and oriented, no acute distress HEENT: PERRL/EOMI, oropharynx clear, Normocephalic, atraumatic Cardiac: RRR, tachycardic, no murmur, no gallops, no rubs Pulmonary: CTAB, no wheezes, rales or rhonchi, equal chest expansion, unlabored breathing Abdomen: soft, nontender, BSx4, no guarding, no palpable masses Skin: erythema on LLE looks better than yesterday, no obvious drainage. 2+ edema, non-tender to palpation, mildly warm. MSK: ROM intact, no joint swelling noted Neuro: A&Ox3, moves all extremities, no focal deficits, sensation intact Psych: Appropriate mood and behavior, normal speech - Assessment and Plan (1) Cellulitis of leg, left Current Visit: Yes Status: Acute Assessment and Plan: Causative organism: suspect staph vs strep Suspected source: Cellulitis SIRS criteria positive on admission: temp 102.4 axillary, HR 110s, RR 22, WBC 26.8, lactic acid 4.4 Currently not meeting the SIRS criteria MRSA swab negative. Discontinue Vancomycin Blood culture NGTD Plan: Continue day 4 Cefepime, will switch to cefazolin if the wound looks better, patient is afebrile with no increased WBC Pain control PRN potential discharge tomorrow (2) Septic shock Current Visit: Yes Status: Resolved Assessment and Plan: -Currently resolved. Lactate has been trending down from 4.4 -> 0.7. Causative organism: suspect staph vs strep Suspected source: Cellulitis SIRS criteria positive on admission: temp 102.4 axillary, HR 110s, RR 22, WBC 26.8, lactic acid 4.4 IV fluids given SIRS criteria positive yesterday: WBC 13.1, HR 93, RR 18, lactic acid 0.7 MRSA swab negative. Discontinue Vancomycin Blood culture NGTD Plan: Continue day 4 Cefepime Pain control (3) Hypertension Current Visit: Yes Status: Chronic Assessment and Plan: Well-controlled this time at 128/91 Resumed home on antihypertensives (4) Hyponatremia Current Visit: Yes Status: Acute Assessment and Plan: Resolved with sodium of 139 -Was mildly low at 135 on admission - Possibly related to dehydration in the setting of sepsis - We will encourage diet and reassess fluid status - Continue monitor (5) ALPA (acute kidney injury) Current Visit: Yes Status: Acute Assessment and Plan: - Resolved with BUN/Cr: 11/0.75 currently - Patient was in ALPA likely due to hypovolemic state in the setting of sepsis. - Unclear baseline, previous lab from 2014 shows creatinine 1.70 - Fluid discontinued (6) Psoriasis Current Visit: Yes Status: Chronic Assessment and Plan: Per history, chronic issue. Not on immunosuppressants (7) Morbid obesity with BMI of 45.0-49.9, adult Current Visit: Yes Status: Chronic Assessment and Plan: counseled on better dietary options (8) DVT prophylaxis Current Visit: Yes Status: Acute Assessment and Plan: Subcutaneous heparin DVT Prophylaxis: Subcutaneous heparin - Time Spent with Patient Total time spent is greater than 50% in coordination of care (as documented) at patient's floor/unit and/or counseling patient: Internal Medicine: Result - Labs CBC & Chem 7: 10/04/18 06:12 10/04/18 06:12 Labs: Short CBC 10/04/18 Range/Units 06:12 WBC 7.2 (4.3-11.1) K/mcL Hgb 12.1 L (12.9-16.9) g/dL Hct 37.4 L (37.5-50.1) % Plt Count 126 L (140-400) K/mcL Neutrophils # 4.9 (1.6-8.9) K/mcL BMP 10/04/18 06:12 Sodium 139 Potassium 3.8 Chloride 106 Carbon Dioxide 26 BUN 11 Creatinine 0.75 Glucose 90 Calcium 8.2 L <Esther Rojas - Last Filed: 10/04/18 14:33> (8) Hypertension Qualifiers: Hypertension type: essential hypertension Qualified Code(s): I10 - Essential (primary) hypertension <Charles Navarrete - Last Filed: 10/04/18 20:24> (3) Hypertension Qualifiers: Hypertension type: essential hypertension Qualified Code(s): I10 - Essential (primary) hypertension
[2018-10-05] MEDS: *HR* Heparin 5,000 UNIT/ML VIAL SQ SCH ×3 (05:35→20:53)
[2018-10-05] MEDS: Cefepime HCl 2,000 MG in Water for inj. (sterile) 20 ML 20 ML IVP SCH ×2 (05:36→20:14)
[2018-10-05] MEDS: Acetaminophen 325 MG TABLET PO PRN ×2 (05:36→11:53)
[2018-10-05 05:42] LABS: Basophils % 0.3 %; Eosinophils # 0.1 K/mcL (0.0-0.6); Eosinophils % 1.5 %; Hematocrit 37.3 % (37.5-50.1); Hemoglobin 12.2 g/dL (12.9-16.9); Lymphocytes # 1.6 K/mcL (0.6-4.6); Lymphocytes % 20.9 %; Mean Corpuscular HGB Conc 32.7 g/dL (31.6-35.5); Mean Corpuscular Hemoglobin 27.5 pg (28.0-33.3); Mean Corpuscular Volume 84.2 fL (83.0-100.0); Mean Platelet Volume 9.5 fL (9.4-12.4); Monocytes # 0.6 K/mcL (0.0-1.3); Monocytes % 7.8 %; Platelet Count 162 K/mcL (140-400); Red Blood Count 4.43 M/mcL (4.19-5.50); Red Cell Distribution Width 13.3 % (11.5-14.5); Segmented Neutrophils % 67.5 %
[2018-10-05] MEDS ORDERED: Lisinopril-HCTZ 20-12.5mg TABLET PO SCH (09:00)
--- NOTE | 2018-10-05 13:23 | Internal Med Progress Note ---
<Esther Rojas - Last Filed: 10/05/18 14:54> Hospitalist Progress Note - Encounter Date of Encounter: 10/05/18 - Exam Vitals: Temp Pulse Resp BP Pulse Ox 97.9 F 84 16 136/84 96 10/05/18 10:48 10/05/18 10:48 10/05/18 10:48 10/05/18 10:48 10/05/18 10:48 - Assessment and Plan (1) Cellulitis of leg, left Current Visit: Yes Status: Acute (2) Hyponatremia Current Visit: Yes Status: Acute (3) ALPA (acute kidney injury) Current Visit: Yes Status: Acute (4) Psoriasis Current Visit: Yes Status: Chronic (5) DVT prophylaxis Current Visit: Yes Status: Acute (6) Hypertension Current Visit: Yes Status: Chronic (7) Septic shock Current Visit: Yes Status: Resolved (8) Morbid obesity with BMI of 45.0-49.9, adult Current Visit: Yes Status: Chronic - Time Spent with Patient Total time spent is greater than 50% in coordination of care (as documented) at patient's floor/unit and/or counseling patient: Internal Medicine: Result - Labs CBC & Chem 7: 10/05/18 04:40 10/04/18 06:12 Labs: Short CBC 10/05/18 Range/Units 04:40 WBC 7.4 (4.3-11.1) K/mcL Hgb 12.2 L (12.9-16.9) g/dL Hct 37.3 L (37.5-50.1) % Plt Count 162 (140-400) K/mcL Neutrophils # 5.0 (1.6-8.9) K/mcL Consult Discharge Plan - Plan Referrals: Levy Kelyl, EXCELLENCE COACH [Primary Care Provider] - - Attending Attestation I examined this patient and my medical decision-making was reviewed with the Resident Physician Landon. I agree with the documented findings, disposition and treatment plan as described except to the extent set forth below. Mr To is currently admitted for cellulitis LLE associated with septic shock and acute renal failure. Mr To is awake. continued edema lle and redness, overall improving, no fevers or chills gen- alert, awake,appears stated age cv- reg rate and rhythm, normal s1,s2, no murmurs appreciated, no pitting le edema lungs- ctabl, no wheezing, rhonchi or crackles skin- reduced erythmea with some extensive outside marked line LLE, faint erythema medial thigh resolved neuro- AAOx3, sensation to lt touch bl le intact and equal 1. Cellulitis - continue cefepime , hope to transition to oral in AM 2. Psoriasis - stable 3. Morbid obesity- lifestyle modifications 4. ALPA resolved. 5. Septic shock resolved Further diagnoses and plan as noted by resident <Charles Navarrete - Last Filed: 10/05/18 21:45> Hospitalist Progress Note - Encounter Date of Encounter: 10/05/18 Time of Encounter: 08:00 - Exam Vitals: Temp Pulse Resp BP Pulse Ox 97.9 F 84 16 136/84 96 10/05/18 10:48 10/05/18 10:48 10/05/18 10:48 10/05/18 10:48 10/05/18 10:48 Exam: Gen.: alert and oriented, no acute distress HEENT: PERRL/EOMI, oropharynx clear, Normocephalic, atraumatic Cardiac: RRR, tachycardic, no murmur, no gallops, no rubs Pulmonary: CTAB, no wheezes, rales or rhonchi, equal chest expansion, unlabored breathing Abdomen: soft, nontender, BSx4, no guarding, no palpable masses Skin: erythema on LLE looks better than yesterday, no obvious drainage. 2+ edema, non-tender to palpation, mildly warm. MSK: ROM intact, no joint swelling noted Neuro: A&Ox3, moves all extremities, no focal deficits, sensation intact Psych: Appropriate mood and behavior, normal speech - Assessment and Plan (1) Cellulitis of leg, left Current Visit: Yes Status: Acute Assessment and Plan: Causative organism: suspect staph vs strep SIRS criteria positive on admission: temp 102.4 axillary, HR 110s, RR 22, WBC 26.8, lactic acid 4.4 Currently not meeting the SIRS criteria Would looks better with every progressing day MRSA swab negative. Discontinue Vancomycin Blood culture NGTD Plan: Continue day 5 Cefepime, will switch to cefazolin tomorrow for a total of 14 days if the wound looks better, patient is afebrile with no increased WBC Pain control PRN potential discharge tomorrow (2) Septic shock Current Visit: Yes Status: Resolved Assessment and Plan: -Currently resolved. Lactate has been trending down from 4.4 -> 0.7. Causative organism: suspect staph vs strep Suspected source: Cellulitis SIRS criteria positive on admission: temp 102.4 axillary, HR 110s, RR 22, WBC 26.8, lactic acid 4.4 SIRS criteria positive yesterday: WBC 13.1, HR 93, RR 18, lactic acid 0.7 MRSA swab negative. Discontinue Vancomycin Blood culture NGTD Plan: Continue day 5 Cefepime Pain control (3) Hypertension Current Visit: Yes Status: Chronic Assessment and Plan: Well-controlled this time at 143/88 Resumed home antihypertensives (4) Hyponatremia Current Visit: Yes Status: Acute Assessment and Plan: Resolved -Was mildly low at 135 on admission - Possibly related to dehydration in the setting of sepsis - We will encourage diet and reassess fluid status - Continue monitor (5) ALAP (acute kidney injury) Current Visit: Yes Status: Acute Assessment and Plan: - Resolved with BUN/Cr: 11/0.75 currently - Patient was in ALPA likely due to hypovolemic state in the setting of sepsis. - Unclear baseline, previous lab from 2014 shows creatinine 1.70 - Fluid discontinued (6) Psoriasis Current Visit: Yes Status: Chronic Assessment and Plan: Per history, chronic issue. Not on immunosuppressants (7) Morbid obesity with BMI of 45.0-49.9, adult Current Visit: Yes Status: Chronic Assessment and Plan: counseled on better dietary options (8) DVT prophylaxis Current Visit: Yes Status: Acute Assessment and Plan: Subcutaneous heparin DVT Prophylaxis: Subcutaneous heparin - Time Spent with Patient Total time spent is greater than 50% in coordination of care (as documented) at patient's floor/unit and/or counseling patient: Internal Medicine: Result - Labs CBC & Chem 7: 10/05/18 04:40 10/04/18 06:12 Labs: Short CBC 10/05/18 Range/Units 04:40 WBC 7.4 (4.3-11.1) K/mcL Hgb 12.2 L (12.9-16.9) g/dL Hct 37.3 L (37.5-50.1) % Plt Count 162 (140-400) K/mcL Neutrophils # 5.0 (1.6-8.9) K/mcL <Esther Rojas - Last Filed: 10/05/18 14:54> (6) Hypertension Qualifiers: Hypertension type: essential hypertension Qualified Code(s): I10 - Essential (primary) hypertension <Charles Navarrete - Last Filed: 10/05/18 21:45> (3) Hypertension Qualifiers: Hypertension type: essential hypertension Qualified Code(s): I10 - Essential (primary) hypertension
[2018-10-05] MEDS: Lisinopril 20 MG TABLET PO SCH (20:53)
[2018-10-05] MEDS: hydroCHLOROthiazide 25 MG TABLET PO SCH (20:53)
[2018-10-05] MEDS ORDERED: Simethicone 80 MG TAB.CHEW PO PRN (21:15)
[2018-10-06] MEDS: Acetaminophen 325 MG TABLET PO PRN (00:08)
[2018-10-06] MEDS: Cefepime HCl 2,000 MG in Water for inj. (sterile) 20 ML 20 ML IVP SCH (05:30)
[2018-10-06] MEDS: *HR* Heparin 5,000 UNIT/ML VIAL SQ SCH ×3 (05:32→20:38)
[2018-10-06 06:21] LABS: Basophils % 0.5 %; Eosinophils # 0.1 K/mcL (0.0-0.6); Eosinophils % 1.6 %; Hematocrit 36.3 % (37.5-50.1); Immature Granulocytes % 3.4 % (0-4); Lymphocytes # 1.4 K/mcL (0.6-4.6); Lymphocytes % 18.2 %; Mean Corpuscular HGB Conc 33.1 g/dL (31.6-35.5); Mean Corpuscular Hemoglobin 27.5 pg (28.0-33.3); Mean Corpuscular Volume 83.1 fL (83.0-100.0); Mean Platelet Volume 9.1 fL (9.4-12.4); Monocytes # 0.6 K/mcL (0.0-1.3); Monocytes % 8.1 %; Neutrophils # 5.2 K/mcL (1.6-8.9); Platelet Count 173 K/mcL (140-400); Red Blood Count 4.37 M/mcL (4.19-5.50); Red Cell Distribution Width 13.2 % (11.5-14.5); Segmented Neutrophils % 68.2 %
[2018-10-06] MEDS: Lisinopril 20 MG TABLET PO SCH ×2 (10:04→20:38)
[2018-10-06] MEDS: hydroCHLOROthiazide 25 MG TABLET PO SCH ×2 (10:05→20:38)
--- NOTE | 2018-10-06 10:59 | Internal Med Progress Note ---
<Esther Rojas - Last Filed: 10/06/18 13:46> Hospitalist Progress Note - Encounter Date of Encounter: 10/06/18 - Exam Vitals: Temp Pulse Resp BP Pulse Ox 99.1 F 81 20 126/78 93 10/06/18 10:51 10/06/18 10:51 10/06/18 10:51 10/06/18 10:51 10/06/18 10:51 - Assessment and Plan (1) Cellulitis of leg, left Current Visit: Yes Status: Acute (2) Hyponatremia Current Visit: Yes Status: Acute (3) ALPA (acute kidney injury) Current Visit: Yes Status: Acute (4) Psoriasis Current Visit: Yes Status: Chronic (5) DVT prophylaxis Current Visit: Yes Status: Acute (6) Hypertension Current Visit: Yes Status: Chronic (7) Septic shock Current Visit: Yes Status: Resolved (8) Morbid obesity with BMI of 45.0-49.9, adult Current Visit: Yes Status: Chronic - Time Spent with Patient Total time spent is greater than 50% in coordination of care (as documented) at patient's floor/unit and/or counseling patient: Internal Medicine: Result - Labs CBC & Chem 7: 10/06/18 05:24 10/04/18 06:12 Labs: Short CBC 10/06/18 Range/Units 05:24 WBC 7.7 (4.3-11.1) K/mcL Hgb 12.0 L (12.9-16.9) g/dL Hct 36.3 L (37.5-50.1) % Plt Count 173 (140-400) K/mcL Neutrophils # 5.2 (1.6-8.9) K/mcL Consult Discharge Plan - Plan Referrals: Levy Kelly, RESOURCE AGENT [Primary Care Provider] - - Attending Attestation I examined this patient and my medical decision-making was reviewed with the Resident Physician Landon. I agree with the documented findings, disposition and treatment plan as described except to the extent set forth below. Mr To is currently admitted for cellulitis LLE associated with septic shock and acute renal failure which have since resolved Mr To is awake. edema improving, pain improving slowly, erythema improving daily, + blisters on skin, none open or draining. no fevers, chills, n/v. gen- alert, awake,appears stated age cv- reg rate and rhythm, normal s1,s2, no murmurs appreciated, no pitting le edema lungs- ctabl, no wheezing, rhonchi or crackles, normal resp effort on ra skin- reduced erythmea with only faint erythema now outside marked line LLE neuro- AAOx3 1. Cellulitis, improving -transition to oral abx today, check cbc in am, if afebrile and cont to improve will dc tomorrow, rec a 10d course abx on dc given severity of initial presentation and slow but steady improvement this admit 2. Psoriasis - stable 3. Morbid obesity- lifestyle modifications 4. ALPA resolved. 5. Septic shock resolved Further diagnoses and plan as noted by resident <Charles Navarrete - Last Filed: 10/06/18 17:20> Hospitalist Progress Note - Encounter Date of Encounter: 10/06/18 Time of Encounter: 09:00 - Subjective Interval History: Mr to continues to remain afebrile and leukocytosis, his cellulitis look better than yesterday with no evidence of serosangunous discharge or bleeding. He endorses left leg pain when he ambulates from his bed to his restroom but the pain gets better when he sits. Patient will be transitioned from IV Cefepime to PO Ancef and will be discharged on his PO Ancef. - Exam Vitals: Temp Pulse Resp BP Pulse Ox 99.1 F 81 20 126/78 93 10/06/18 10:51 10/06/18 10:51 10/06/18 10:51 10/06/18 10:51 10/06/18 10:51 Exam: Gen.: alert and oriented, no acute distress HEENT: PERRL/EOMI, oropharynx clear, Normocephalic, atraumatic Cardiac: RRR, tachycardic, no murmur, no gallops, no rubs Pulmonary: CTAB, no wheezes, rales or rhonchi, equal chest expansion, unlabored breathing Abdomen: soft, nontender, BSx4, no guarding, no palpable masses Skin: erythema on LLE looks better than yesterday, no obvious drainage. 2+ edema, non-tender to palpation, mildly warm. MSK: ROM intact, no joint swelling noted Neuro: A&Ox3, moves all extremities, no focal deficits, sensation intact Psych: Appropriate mood and behavior, normal speech - Assessment and Plan (1) Cellulitis of leg, left Current Visit: Yes Status: Acute Assessment and Plan: Causative organism: suspect staph vs strep SIRS criteria positive on admission: temp 102.4 axillary, HR 110s, RR 22, WBC 26.8, lactic acid 4.4 Currently not meeting the SIRS criteria Would looks better with every progressing day MRSA swab negative. Blood culture NGTD Plan: Patient completed her 6 day course of Cefepime, switched to Keflex today 500 mg BID and patient will go home for a total of 10 days . Pain control PRN potential discharge tomorrow (2) Septic shock Current Visit: Yes Status: Resolved Assessment and Plan: -Currently resolved. Lactate has been trending down from 4.4 -> 0.7. Causative organism: suspect staph vs strep Suspected source: Cellulitis SIRS criteria positive on admission: temp 102.4 axillary, HR 110s, RR 22, WBC 26.8, lactic acid 4.4 SIRS criteria positive yesterday: WBC 13.1, HR 93, RR 18, lactic acid 0.7 MRSA swab negative. Discontinue Vancomycin Blood culture NGTD Plan: Continue day 5 Cefepime Pain control (3) Hypertension Current Visit: Yes Status: Chronic Assessment and Plan: Well-controlled this time at 126/78 Resumed home antihypertensives (4) Hyponatremia Current Visit: Yes Status: Acute Assessment and Plan: Resolved -Was mildly low at 135 on admission - Possibly related to dehydration in the setting of sepsis - We will encourage diet and reassess fluid status - Continue monitor (5) ALPA (acute kidney injury) Current Visit: Yes Status: Acute Assessment and Plan: - Resolved with BUN/Cr: 11/0.75 when the last BMP was monitored - Patient was in ALPA likely due to hypovolemic state in the setting of sepsis. - Unclear baseline, previous lab from 2014 shows creatinine 1.70 - Fluid discontinued (6) Psoriasis Current Visit: Yes Status: Chronic Assessment and Plan: Per history, chronic issue. Not on immunosuppressants (7) Morbid obesity with BMI of 45.0-49.9, adult Current Visit: Yes Status: Chronic Assessment and Plan: counseled on better dietary options (8) DVT prophylaxis Current Visit: Yes Status: Acute Assessment and Plan: Subcutaneous heparin - Time Spent with Patient Total time spent is greater than 50% in coordination of care (as documented) at patient's floor/unit and/or counseling patient: Internal Medicine: Result - Labs CBC & Chem 7: 10/06/18 05:24 10/04/18 06:12 Labs: Short CBC 10/06/18 Range/Units 05:24 WBC 7.7 (4.3-11.1) K/mcL Hgb 12.0 L (12.9-16.9) g/dL Hct 36.3 L (37.5-50.1) % Plt Count 173 (140-400) K/mcL Neutrophils # 5.2 (1.6-8.9) K/mcL <Esther Rojas - Last Filed: 10/06/18 13:46> (6) Hypertension Qualifiers: Hypertension type: essential hypertension Qualified Code(s): I10 - Essential (primary) hypertension <Charles Navarrete - Last Filed: 10/06/18 17:20> (3) Hypertension Qualifiers: Hypertension type: essential hypertension Qualified Code(s): I10 - Essential (primary) hypertension
[2018-10-06] MEDS: cephALEXin 500 MG CAPSULE PO SCH ×3 (13:08→20:38)
[2018-10-06] MEDS ORDERED: cephALEXin 500 MG CAPSULE PO SCH (21:00)
[2018-10-07] MEDS: Ibuprofen 800 MG TABLET PO PRN (03:15)
[2018-10-07] MEDS: *HR* Heparin 5,000 UNIT/ML VIAL SQ SCH (06:08)
[2018-10-07 07:36] LABS: Basophils # 0.1 K/mcL (0.0-0.2); Basophils % 0.9 %; Eosinophils # 0.1 K/mcL (0.0-0.6); Eosinophils % 1.7 %; Hematocrit 39.6 % (37.5-50.1); Immature Granulocytes % 3.8 % (0-4); Lymphocytes # 1.4 K/mcL (0.6-4.6); Lymphocytes % 19.7 %; Mean Corpuscular HGB Conc 32.8 g/dL (31.6-35.5); Mean Corpuscular Hemoglobin 27.6 pg (28.0-33.3); Mean Corpuscular Volume 84.1 fL (83.0-100.0); Mean Platelet Volume 9.3 fL (9.4-12.4); Monocytes # 0.6 K/mcL (0.0-1.3); Monocytes % 8.2 %; Neutrophils # 4.5 K/mcL (1.6-8.9); Platelet Count 201 K/mcL (140-400); Red Blood Count 4.71 M/mcL (4.19-5.50); Red Cell Distribution Width 13.2 % (11.5-14.5); Segmented Neutrophils % 65.7 %
[2018-10-07] MEDS: Lisinopril 20 MG TABLET PO SCH (08:52)
[2018-10-07] MEDS: hydroCHLOROthiazide 25 MG TABLET PO SCH (08:53)
[2018-10-07] MEDS: cephALEXin 500 MG CAPSULE PO SCH (08:53)
[2018-10-07 10:49] VITALS: BP 124/82
--- NOTE | 2018-10-07 11:50 | Discharge Summary ---
<Esther Rojas - Last Filed: 10/07/18 15:23> - NOTES TO OUTPATIENT PROVIDER Notes to Outpatient Provider: Mr Camacho was admitted with cellulitis. He requires close outpt follow up and is discharging to home with oral course of keflex to complete treatment. He had intermittently elevated BPs, suspected due to pain. Defer to PCP for further BP management outpatient Date of Encounter: 10/07/18 - Discharge Diagnosis (1) Cellulitis of leg, left Status: Acute (2) Hyponatremia Status: Acute (3) ALPA (acute kidney injury) Status: Acute (4) Psoriasis Status: Chronic (5) DVT prophylaxis Status: Acute (6) Hypertension Status: Chronic Qualifiers: Hypertension type: essential hypertension Qualified Code(s): I10 - Essential (primary) hypertension (7) Septic shock Status: Resolved (8) Morbid obesity with BMI of 45.0-49.9, adult Status: Chronic Hospital course: Mr. To is a 43 year old male - Time Spent with Patient Total time spent providing and/or coordinating discharge services: Time spent: Greater than 30 minutes (45 min) - Discharge Medications Prescriptions: New cephALEXin [Keflex] 500 mg PO QID 5 Days #20 capsule Continue Amlodipine Besylate 10 mg PO DAILY Lisinopril/Hydrochlorothiazide [Zestoretic 20-25 mg Tablet] 1 tab PO BID Aspirin [Ecotrin] 325 mg PO DAILY Home Medications: Aspirin [Ecotrin] 325 mg PO DAILY 09/30/18 [History] Amlodipine Besylate 10 mg PO DAILY 10/01/18 [History] Lisinopril/Hydrochlorothiazide [Zestoretic 20-25 mg Tablet] 1 tab PO BID 09/15 02/02 [History] cephALEXin [Keflex] 500 mg PO QID 5 Days #20 capsule 10/07/18 [Rx] Allergies/Adverse Reactions: Allergy/AdvReac Type Severity Reaction Status Date / Time No Known Allergies Allergy Verified 09/30/18 17:59 Date of admission: 09/30/18 23:45 Primary care physician: Levy Kelly [employer]ICOT [employer]ITTER Discharging clinician: Charles Navarrete - Constitutional Vitals: Temp Pulse Resp BP Pulse Ox 98 F 81 20 124/82 95 10/07/18 10:45 10/07/18 10:45 10/07/18 10:45 10/07/18 10:45 10/07/18 10:45 - Patient Status Disposition: Home, Self-Care Condition: Good - Discharge Instructions Instructions: Cellulitis (DC), Sepsis (DC), Chronic Hypertension (DC) Follow Up With: Levy Kelly, TRICOT KNITTER [Primary Care Provider] - (Follow-up with your primary care provider 5-7 days after discharge ) Additional Instructions: - Follow up with PCP as an outpatient - take your Antibotic Keflex 4 times a day for the next 5 days - elevate your bed above the heart to facilitate healing of the cellulitis - Return to the ED if experiencing worsening symptoms like burning, uncontrolled pain, bleeding, fever, chest pain or SOB - Attending Attestation I examined this patient and my medical decision-making was reviewed with the Resident Physician Landon. I agree with the documented findings, disposition and treatment plan as described except to the extent set forth below. Mr To is currently admitted for cellulitis LLE associated with septic shock and acute renal failure which have since resolved Mr To is awake. edema pain and erythema cont to improve. no fevers or chills. easier ambulation and walking halls. only requring prn tylenol for pain. eager to dc to home. discussed dc plan and answered all questions. stressed improtance of notifying physician if sxs do not cont to improve daily and strict adherance to abx treatment. gen- alert, awake,appears stated age cv- reg rate and rhythm, normal s1,s2 no pitting le edema lungs- ctabl, no wheezing, rhonchi or crackles, normal resp effort on ra skin- reduced erythmea LLE and receeding from marked line, fluid blisters along nazario are now drying up and receding, no open wounds, no drainage neuro- AAOx3 1. Cellulitis, improved-stable on oral abx without worsened exam, fever or leukocytosis, cont keflex to complete 10 d total course and close fu with pcp 2. Psoriasis - stable 3. Morbid obesity- lifestyle modifications 4. ALPA resolved. 5. Septic shock resolved 6. HTN- stable, fu with pcp outpt Further diagnoses and plan as noted by resident Time spent on dc 45 min <Charles Navarrete - Last Filed: 10/07/18 20:01> Date of Encounter: 10/07/18 Time of Encounter: 09:15 - Discharge Diagnosis (1) Cellulitis of leg, left Priority: Primary Status: Acute (2) Septic shock Priority: Secondary Status: Resolved (3) Hypertension Priority: Secondary Status: Chronic Qualifiers: Hypertension type: essential hypertension Qualified Code(s): I10 - Essential (primary) hypertension (4) Hyponatremia Priority: Secondary Status: Acute (5) ALPA (acute kidney injury) Priority: Secondary Status: Acute (6) Psoriasis Priority: Secondary Status: Chronic (7) Morbid obesity with BMI of 45.0-49.9, adult Priority: Secondary Status: Chronic (8) DVT prophylaxis Priority: Secondary Status: Acute Hospital course: Mr. To is a 43 year old male who presented via EMS for left lower extremity infection. Patient has a past medical history of hypertension, psoriasis which has led to multiple cellulitis infection in the past. He has lower extremity CT showed diffuse soft tissue swelling and fat stranding within the left lower leg particularly anteriorly suggestive of cellulitis. Patient was admitted to the hospital for further management. Patient was on the 2000 mg of cefepime for the first 5 days of his hospital stay. While on IV antibiotics, patient left leg cellulitis started getting better with every progressing day with decreasing erythema and pain. On day 6 patient was switched to by mouth Keflex . On day 8 of his hospital admission patient was deemed hemodynamically stable, with decreased erythema, no evidence of any serosanguineous discharge, excoriation or pain at the site of cellulitis. Patient has been given 5 days worth of by mouth Keflex to take home. - Time Spent with Patient Total time spent providing and/or coordinating discharge services: Date of admission: 09/30/18 23:45 Primary care physician: Levy Kelly CNP - Constitutional Vitals: Temp Pulse Resp BP Pulse Ox 98 F 81 20 124/82 95 10/07/18 10:45 10/07/18 10:45 10/07/18 10:45 10/07/18 10:45 10/07/18 10:45 Exam: Gen.: alert and oriented, no acute distress HEENT: PERRL/EOMI, oropharynx clear, Normocephalic, atraumatic Cardiac: RRR, tachycardic, no murmur, no gallops, no rubs Pulmonary: CTAB, no wheezes, rales or rhonchi, equal chest expansion, unlabored breathing Abdomen: soft, nontender, BSx4, no guarding, no palpable masses Skin: erythema on LLE improved, no obvious drainage. 2+ edema, non-tender to palpation, mildly warm. MSK: ROM intact, no joint swelling noted Neuro: A&Ox3, moves all extremities, no focal deficits, sensation intact Psych: Appropriate mood and behavior, normal speech - Patient Status Functional capacity at discharge: independent ambulation Overall status at discharge: patient is progressing back to baseline - Diet and Activity Activity: resume usual activities as tolerated Diet: regular diet
== END 2018-10-07 14:41 | disposition home or self-care (01) | DRG 720 ==
LOC: 2ANU → SUATTDRO 23:45
PROVIDERS: ADMIT Internal Medicine; ATTEND Internal Medicine